=== PATIENT | female | born 1965 | race Caucasian/White ===

== ENCOUNTER 2017-05-18 14:31 | Inpatient (IN) | payer OTHER ==
[~2017-05-18] VITALS: Ht 157.5 cm; Wt 77.0 kg
[~2017-05-18 14:31] MED LIST: BACL20TA PO; CITA-73 PO; CLON05T PO; HYDR-4069 PO; PREG150C PO; QUET25TA46 PO; TRAM50TA2 PO; TRAMADOL
[2017-05-18] MEDS ORDERED: SODIUM CHLORIDE 0.9% 500 ML IVB ONE (15:38)
[2017-05-18] MEDS ORDERED: HYDROmorphone HCL 2 MG/ML VL IV ONE ×2 (15:45→19:45)
[2017-05-18] MEDS ORDERED: ONDANSETRON HCL 4 MG/2 ML VIAL IV ONE (15:45)
[2017-05-18 16:02] LABS: Basophils # (auto) 0 uL; Basophils % (auto) 0.2 % (0.0-2.0); CONDITION Y; Eosinophils # (auto) 0.1 uL; Eosinophils % (auto) 0.6 % (0.0-7.0); Hematocrit 43.7 % (36.0-46.0); Hemoglobin 14.9 g/dL (12.2-16.2); Lymphocytes # (auto) 1.7 uL; Lymphocytes % (auto) 10.2 % (10.0-50.0); Mean Corpuscular Hemoglobin 30.6 pg (28.0-32.0); Mean Corpuscular Hgb Conc. 34.2 g/dL (32.0-36.0); Mean Corpuscular Volume 89.5 fL (80.0-100.0); Mean Platelet Volume 8.1 fL (7.4-10.4); Monocytes # (auto) 1.3 uL; Monocytes % (auto) 7.9 % (0.0-12.0); Neutrophils # (auto) 13.8 uL; Neutrophils % (auto) 81.1 % (37.0-80.0); Platelet Count (auto) 285 10^3/uL (140-450); Red Cell Distribution Width 13.9 % (11.6-16.0); White Blood Cell 17.1 10^3/uL (4.4-10.8)
[2017-05-18 16:25] LABS: Albumin 2.7 g/dL (3.4-5.0); BUN/Creatinine Ratio 16.2; Calcium 7.7 mg/dL (8.5-10.1); Potassium 4.1 mmol/L (3.5-5.1)
[2017-05-18 16:28] LABS: Bilirubin, Total 0.5 mg/dL (0.2-1.0); Total Protein 6.1 g/dL (6.4-8.2)
[2017-05-18] MEDS ORDERED: metroNIDAZOLE 500MG/100ML 100 ML IV ONE (19:00)
[2017-05-18] MEDS ORDERED: SODIUM CHLORIDE 0.9% 1,000 ML IV ONE ×2 (20:15→21:15)
[2017-05-18] MEDS ORDERED: ONDANSETRON HCL 4 MG/2 ML VIAL IV PRN (20:45)
[2017-05-18] MEDS ORDERED: MORPHINE SULF INJ 2 MG/ML SYRINGE 1ML IV PRN (20:45)
[2017-05-18] MEDS ORDERED: NITROGLYCERIN 0.4 MG SL TAB SL PRN (20:45)
[2017-05-18] MEDS ORDERED: IPRATROPIUM BROM 0.5 MG/2.5ML INH SOL NEB PRN (21:00)
[2017-05-18] MEDS ORDERED: ALBUTEROL SULF 2.5 MG/0.5ML(0.5%) NEB SOLN NEB PRN (21:00)
[2017-05-18] MEDS: CIPROFLOXACIN 400MG/200ML 200 ML IV SCH (21:24)
[2017-05-18 21:45] LABS: Urine RBC None Seen /hpf (0 - 4)
[2017-05-18 22:08] LABS: Urine Bilirubin Negative (Negative); Urine Blood Negative /uL (Negative); Urine Color Yellow (Yellow); Urine Glucose Normal (Normal); Urine Ketone Negative (Negative); Urine Nitrite Negative (Negative); Urine Squamous Epithelial Cell FEW /hpf (<5); Urine Urobilinogen Normal (Negative)
[2017-05-18] MEDS ORDERED: NOREPINEPHRINE BITARTRATE 250 ML IV ONE (22:27)
[2017-05-18] MEDS ORDERED: NOREPINEPHRINE BITARTRATE 250 ML IV SCH (22:30)
[2017-05-19] VITALS (23 sets, daily range): BP systolic 97–171; BP diastolic 63–95
[2017-05-19] MEDS: PREGABALIN CAPSULE 75 MG CAP PO SCH ×3 (01:17→14:03)
[2017-05-19] MEDS: SOD CHL 0.45% 1,000 ML IV SCH ×2 (02:34→06:27)
[2017-05-19] MEDS: metroNIDAZOLE 500MG/100ML 100 ML IV SCH ×2 (03:47→14:03)
[2017-05-19] MEDS: MORPHINE SULF INJ 2 MG/ML SYRINGE 1ML IV PRN ×2 (03:54→09:22)
[2017-05-19 04:29] LABS: Basophils # (auto) 0 uL; Basophils % (auto) 0.1 % (0.0-2.0); CONDITION Y; DEFINITIVE SEE PRINTOUT; Eosinophils # (auto) 0.1 uL; Eosinophils % (auto) 0.6 % (0.0-7.0); Hematocrit 43.5 % (36.0-46.0); Hemoglobin 14.7 g/dL (12.2-16.2); Lymphocytes # (auto) 1.6 uL; Lymphocytes % (auto) 10.1 % (10.0-50.0); Mean Corpuscular Hemoglobin 30.5 pg (28.0-32.0); Mean Corpuscular Hgb Conc. 33.8 g/dL (32.0-36.0); Mean Corpuscular Volume 90.2 fL (80.0-100.0); Mean Platelet Volume 8.6 fL (7.4-10.4); Monocytes # (auto) 1.9 uL; Monocytes % (auto) 11.8 % (0.0-12.0); Neutrophils # (auto) 12.2 uL; Neutrophils % (auto) 77.4 % (37.0-80.0); Platelet Count (auto) 323 10^3/uL (140-450); Red Cell Distribution Width 13.8 % (11.6-16.0); White Blood Cell 15.8 10^3/uL (4.4-10.8)
[2017-05-19 05:02] LABS: Potassium 3.8 mmol/L (3.5-5.1)
[2017-05-19 05:06] LABS: Albumin 2.4 g/dL (3.4-5.0); BUN/Creatinine Ratio 13.3; Calcium 7.3 mg/dL (8.5-10.1)
[2017-05-19 05:08] LABS: Bilirubin, Total 0.5 mg/dL (0.2-1.0); Total Protein 5.6 g/dL (6.4-8.2)
[2017-05-19] MEDS: CIPROFLOXACIN 400MG/200ML 200 ML IV SCH (09:11)
[2017-05-19] MEDS ORDERED: CITALOPRAM HYDROBR 20 MG TAB PO SCH (10:00)
[2017-05-19] MEDS ORDERED: QUEtiapine FUMARATE 25 MG TAB PO SCH (10:00)
[2017-05-19] MEDS ORDERED: HYDROcodone-ACET 5/325MG TAB PO PRN (12:00)
[2017-05-19] MEDS ORDERED: SODIUM CHLORIDE 0.9% 1,000 ML IV ONE ×2 (12:00→16:00)
[2017-05-19] MEDS ORDERED: MORPHINE SULFATE 4 MG/ML SYRG IV PRN (12:15)
[2017-05-19] MEDS ORDERED: D5W/SOD CHL 0.45% 1,000 ML IV SCH (13:00)
[2017-05-19] MEDS ORDERED: clonazePAM 0.5 MG TAB PO PRN (16:00)
[2017-05-19] MEDS ORDERED: BACLOFEN 10 MG TAB PO PRN (16:00)
== END 2017-05-19 17:27 | disposition left against medical advice (07) | DRG 871 ==
LOC: EDBD 14:31 → ER 14:35 → OVERFLOW 14:36 → ICU WEST 05-19 11:35
PROVIDERS: ADMIT Internal Medicine; ATTEND Internal Medicine
DX: A41.9 Sepsis, unspecified organism (principal); R65.21 Severe sepsis with septic shock; K51.90 Ulcerative colitis, unspecified, without complications; E88.09 Other disorders of plasma-protein metabolism, not elsewhere classified; G35 Multiple sclerosis; E11.42 Type 2 diabetes mellitus with diabetic polyneuropathy; A09 Infectious gastroenteritis and colitis, unspecified; F12.90 Cannabis use, unspecified, uncomplicated; F17.210 Nicotine dependence, cigarettes, uncomplicated; F32.9 Major depressive disorder, single episode, unspecified; F41.9 Anxiety disorder, unspecified; G89.29 Other chronic pain; I10 Essential (primary) hypertension; I25.10 Atherosclerotic heart disease of native coronary artery without angina pectoris; K42.9 Umbilical hernia without obstruction or gangrene; K44.9 Diaphragmatic hernia without obstruction or gangrene; F10.20 Alcohol dependence, uncomplicated; M54.5 Low back pain; K57.30 Diverticulosis of large intestine without perforation or abscess without bleeding; K59.8 Other specified functional intestinal disorders; M79.7 Fibromyalgia; J44.9 Chronic obstructive pulmonary disease, unspecified; Z80.3 Family history of malignant neoplasm of breast; Z90.89 Acquired absence of other organs; Z90.49 Acquired absence of other specified parts of digestive tract; Z98.51 Tubal ligation status
CPT/HCPCS: 36415; 71010; 74177; 80053; 80307; 81001; 82150; 83605; 83690; 83735; 85025; 87040; 87081; 93005; 94761; 96361; 96365; 96367; 96375; J2405; J3490